=== PATIENT | male | born 1945 | race Caucasian/White ===

== ENCOUNTER → 2016-12-06 | Outpatient (CLI) | payer MEDICARE, OTHER ==
[2016-12-06 07:25] LABS: HEMOGLOBIN 14.2 gm/dl (14.0-17.5)
== END ==
LOC: LAB 06:58
PROVIDERS: Internal Medicine
DX: K92.2 Gastrointestinal hemorrhage, unspecified (principal); E29.9 Testicular dysfunction, unspecified
CPT/HCPCS: 36415; 83540; 84403; 85014; 85018

== ENCOUNTER → 2020-11-04 | Outpatient (CLI) | payer MEDICARE, OTHER ==
[2020-11-04 10:56] LABS: BUN/CREATININE RATIO 22 (0-10)
== END ==
LOC: LAB 09:52
PROVIDERS: Internal Medicine
DX: I50.22 Chronic systolic (congestive) heart failure (principal)
CPT/HCPCS: 36415; 80048